=== PATIENT | male | born 1995 | race Caucasian/White ===

== ENCOUNTER 2017-08-06 22:02 | Emergency (ER) | payer BC ==
[2017-08-06 22:07] VITALS: BP 121/71
--- NOTE | 2017-08-07 00:02 | ED ---
Throat Pain/Nasal Congestion - HPI Summary HPI Summary: 21-year-old male presents to sore throat for the past week. He states he has history of strep is concerned that he has such. He admits to fatigue. He admits to abdominal pain intermittently. He admits to nausea intermittently. He denies any chest pain or shortness breath. Denies any cough. He denies any headache. Denies any fevers. He has been taking Tylenol for her symptoms. He states he is very tired. He has no medical conditions. No one else is sick. - History of Current Complaint Chief Complaint: EDThroatPain Time Seen by Provider: 08/06/17 23:24 - Allergies/Home Medications Allergies/Adverse Reactions: Allergies Allergy/AdvReac Type Severity Reaction Status Date / Time No Known Allergies Allergy Verified 08/06/17 22:04 PMH/Surg Hx/FS Hx/Imm Hx Endocrine/Hematology History: Denies: Hx Anticoagulant Therapy Respiratory History: Denies: Hx Asthma Psychiatric History: Denies: Hx of Violent Episodes Against Others Infectious Disease History: No Infectious Disease History: Denies: Traveled Outside the [place] in Last 30 Days - Family History Known Family History: Negative: Respiratory Disease - Social History Alcohol Use: Occasionally Substance Use Type: Reports: None Smoking Status (MU): Heavy Every Day Tobacco Smoker Review of Systems Negative: Fever Positive: Sore Throat Negative: Chest Pain Negative: Shortness Of Breath All Other Systems Reviewed And Are Negative: Yes Physical Exam Triage Information Reviewed: Yes Vital Signs On Initial Exam: Initial Vitals Temp Pulse Resp BP Pulse Ox 97.2 F 91 14 121/71 97 08/06/17 22:05 08/06/17 22:05 08/06/17 22:05 08/06/17 22:05 08/06/17 22:05 Vital Signs Reviewed: Yes Appearance: Positive: Well-Appearing Skin: Positive: Warm, Dry Head/Face: Positive: Normal Head/Face Inspection Eyes: Positive: Normal, EOMI, MAGUE, Conjunctiva Clear ENT: Positive: Normal ENT inspection, Pharyngeal erythema, Uvula midline, Other - soft palate symmetric. Negative: Tonsillar swelling, Tonsillar exudate, Trismus, Muffled voice Neck: Positive: Supple, Nontender, No Lymphadenopathy Respiratory/Lung Sounds: Positive: Clear to Auscultation, Breath Sounds Present Cardiovascular: Positive: Normal, RRR Abdomen Description: Positive: Nontender, Soft Bowel Sounds: Positive: Present Musculoskeletal: Positive: Normal Neurological: Positive: Normal Psychiatric: Positive: Normal Diagnostics - Vital Signs Vital Signs Temp Pulse Resp BP Pulse Ox 08/06/17 22:05 97.2 F 91 14 121/71 97 - Laboratory Lab Results: Lab Results 08/06/17 Range/Units 23:31 Group A Strep Rapid Negative (Negative) Lab Statement: Any lab studies that have been ordered have been reviewed, and results considered in the medical decision making process. EENT Course/Dx - Course Course Of Treatment: 21-year-old male presents to sore throat for the past week. He states he has history of strep is concerned that he has such. He admits to fatigue. He admits to abdominal pain intermittently. He admits to nausea intermittently. He denies any chest pain or shortness breath. Denies any cough. He denies any headache. Denies any fevers. He has been taking Tylenol for her symptoms. He states he is very tired. He has no medical conditions. No one else is sick. On exam pharynx erythematous. Uvula midline. Soft palate symmetric. Lungs clear to auscultation. Strep negative. Patient declined a Monospot. Patient will treat symptoms with Tylenol ibuprofen. Patient understands and agrees. - Differential Diagnoses Differential Diagnoses: Pharyngitis, URI/Bronchitis, Other - strept - Diagnoses Provider Diagnoses: Pharyngitis Discharge - Discharge Plan Condition: Good Disposition: HOME Patient Education Materials: Pharyngitis (ED) Referrals: [facility] [place] [facility] [Outside] Additional Instructions: Take Tylenol or ibuprofen for pain/fever every 6 hours Can gargle salt water, use cough drops or products such as cloraseptic spray for pain Establish care with primary Return to ED if develop difficulty breathing or unable to manage secretions, any new or worsening symptoms
== END 2017-08-07 00:12 | disposition home or self-care (01) ==
LOC: ED 22:02
DX: J02.9 Acute pharyngitis, unspecified (principal); F17.210 Nicotine dependence, cigarettes, uncomplicated; R53.83 Other fatigue
CPT/HCPCS: 87651; 99281